=== PATIENT | male | born 1970 | race Two or more races ===

== ENCOUNTER 2024-09-17 00:18 | Emergency (ER) | payer MEDICAID, SELFPAY ==
[2024-09-17 01:04] VITALS: BP 185/106; PULSE 82; RESP 18; TEMP 36.8; O2SAT 97
[2024-09-17 01:05] VITALS: BMI 28.7
--- NOTE | 2024-09-17 01:22 | XR_ITS ---
Examination: CT brain head without contrast. 2-D sagittal coronal reconstructions Date and time of exam:September 17, 2024 at 0303 hours INDICATIONS: Onset headaches generalized body weakness today CTDI: vol (mGy):46.3 DLP: (mGycm):880 Technique: Multiple CT axial sections of the brain have been obtained, 5 mm slice thickness. Contrast has not been administered. 2-D sagittal, coronal reconstructions have been obtained Low dose protocols were performed. One or more of the following dose reduction techniques were used; automated exposure control, adjustment of the mA and/or KV according to patient size, use of iterative reconstruction technique. Findings: No significant ventricular enlargement. Intra-axial or extra-axial hemorrhage density is not seen. No mass effect or midline shift Basal cisterns are not remarkable. Fourth ventricle is midline. Cranial vault intact. Impression: Negative for acute hemorrhage, mass effect or midline shift
[2024-09-17] MEDS: DIAZEPAM 5 MG TABLET 10 MG PO (01:28)
[2024-09-17 03:48] VITALS: BP 153/95; PULSE 76; RESP 18; TEMP 36.7; O2SAT 95
--- NOTE | 2024-09-17 04:00 | PRELIM_ITS ---
CT scan of the head without intravenous contrast (axial sections with sagittal and coronal reformats) September 17, 2024 0303 hours Clinical history: COOK No prior study is available for comparison. Findings: There is no evidence of intracranial hemorrhage, mass effect or midline shift. There are periventricular white matter hypodensities, compatible with chronic small vessel ischemia. There is mild volume loss. There is atheromatous calcification of the intracranial arteries. The calvarium is unremarkable. The mastoid air cells and the visualized paranasal sinuses are clear. Impression: No evidence of intracranial hemorrhage, mass effect or midline shift. Periventricular chronic small vessel ischemia and volume loss. Report Electronically Signed By: Andrew Stoddard 09/17/2024 3:59:59 AM [EST]
[2024-09-17] MEDS: METOCLOPRAMIDE 5 MG TABLET 10 MG PO (04:39)
[2024-09-17] MEDS: KETOROLAC INJ 60 MG/2 ML VIAL IM (04:39)
[2024-09-17 05:35] VITALS: BP 155/85; PULSE 74; RESP 19; TEMP 36.4; O2SAT 98
--- NOTE | 2024-09-17 05:47 | EDNOTE_ITS ---
ED Headache RME/HPI General Chief Complaint: Headache Stated Complaint: HEADACHE, WEAKNESS, ANXIOUS Time Seen by Provider: 09/17/24 01:21 Arrival date/time: 09/17/24 00:18 53M with history of alcohol use presents to ED with several days of COOK and generalized weakness. Patient last drank 3 days ago. Limitations: no limitations Related Data Previous Rx's ?Medication ?Instructions ?Recorded folic acid 1 mg tablet 1 mg PO BID #30 tabs 3 thiamine mononitrate (vit B1) 100 100 mg PO BID #30 ta bs 08/08/22 mg tablet lorazepam 0.5 mg tablet (Ativan) 0.5 mg PO QDAY PRN an xiety #14 tabs 06/22/23 naltrexone 50 mg tablet 50 mg PO QDAY #30 tabs 06/21 Allergies Allergy/AdvReac Type Severity Reaction Status Date / Time No Known Allergies Allergy Verified 09/17/24 00:19 Review of Systems Review of Systems Systems Reviewed: All systems reviewed, normal except as documented Constitutional Constitutional: Reports system reviewed and no additional complaints, except as documented, Reports as per HPI, Reports anorexia, Denies fever(s), Reports headache(s) and Reports weakness ENT Ears, Nose, Mouth, and Throat: Denies disequilibrium and Reports headache(s) Cardiovascular Cardiovascular: Reports system reviewed and no additional complaints, except as documented, Denies chest pain and Denies dyspnea Respiratory Respiratory: Reports system reviewed and no additional complaints, except as documented, Denies cough and Denies dyspnea Gastrointestinal Gastrointestinal: Reports system reviewed and no additional complaints, except as documented, Denies abdominal pain, Denies nausea and Denies vomiting Neurologic Neurologic: Reports system reviewed and no additional complaints, except as documented, Denies confusion, Denies disequilibrium, Reports headache(s) and Reports weakness Psychiatric Psychiatric: Denies confusion Past Medical History Past Medical History CARDIAC: Positive Hypertension; Negative Cardiac Disorders or Congestive Heart Failure RESPIRATORY: Negative Chronic Obstructive Pulmonary Disease (COPD) GENITOURINARY: Negative Renal Disease ENDOCRINE: Negative Endocrine Disorders, Diabetes Mellitus Type 1 or Diabetes Mellitus Type 2 PSYCHO/SOCIAL: Positive Anxiety OTHER HISTORY: Negative Autoimmune Disease, Blood Transfusions, Blood Transfusion Reaction or Cancer Surgical History SURGICAL: Negative Cardiac Surgery Social History SMOKING STATUS: Never smoker SUBSTANCE USE: does not use ED Exam General Limitations: Present no limitations General appearance: Present alert and in no apparent distress Head Head exam: Present atraumatic Eye Eye exam: Present normal appearance, PERRL and EOMI ENT ENT exam: Present normal exam, normal oropharynx and mucous membranes moist Neck Neck exam: Present normal inspection, full ROM and trachea midline Chest Chest inspection: Present normal inspection and symmetric chest wall rise Respiratory Respiratory exam: Present normal lung sounds bilaterally Cardiovascular Cardiovascular exam: Present regular rate, normal rhythm and normal heart sounds Abdominal Exam Abdominal exam: Present soft and normal bowel sounds Extremities Exam Extremities exam: Present normal inspection and full ROM Back Exam Back exam: Present normal inspection and full ROM Neurological Exam Neurological exam: Present alert, oriented X3 and CN II-XII intact Psychiatric Psychiatric exam: Present normal affect and normal mood Skin Skin exam: Present warm, dry, intact and normal color Course Quality Measures none Orders Category Date Time Status CT head/brain wo con Stat Exams 09/17/24 01:22 Taken Diazepam [Valium] Med 09/17/24 01:22 Discontinued 10 mg PO X1 ONE Ketorolac Inj [Toradol Inj] Med 09/17/24 04:03 Discontinued 60 mg IM X1 ONE Metoclopramide [Reglan] Med 09/17/24 04:03 Discontinued 10 mg PO X1 ONE Vital Signs Vital signs: Vital Signs Temperature 98.2 F 09/17/24 01:04 Pulse Rate 82 09/17/24 01:04 Respiratory Rate 18 09/17/24 01:04 Blood Pressure 185/106 H 09/17/24 01:04 Pulse Oximetry (%) 97 09/17/24 01:04 Oxygen Delivery Method Room Air 09/17/24 01:04 O2 at 97% on RA and WNLs Headache MDM Narrative MDM Narrative:: 53M with history of alcohol use presents to ED with several days of COOK and generalized weakness. Patient last drank 3 days ago. Physical exam reveals normal pupil response and EOM. CN II-XII grossly intact. Patient is afebrile, calm, and alert. Speech normal. Gait normal. CT head unremarkable. Migraine meds improved symptoms. Valium did not improve symptoms. Patient data External records reviewed:: [facility] previous records Clinical information provided by:: patient Social determinants that could affect healthcare access:: alcohol use Patient has the following chronic illnesses:: alcohol use How is presenting disease/condition affected by chronic disease/condition?: exacerbated by Evaluation data The following diagnostics were reviewed and interpreted by me:: radiology exam(s) Lab and/or radiology exams considered but not ordered:: ordered Interpretation Summary: above Medications / Prescriptions Medications or Prescriptions considered but not ordered:: ordered Medication administrations:: Medication Administration History Discontinued Medications Diazepam (Diazepam 5 Mg Tablet) 10 mg PO X1 ONE Stop: 09/17/24 01:23 Last Admin: 09/17/24 01:28 Dose: 10 mg Documented By: FAYE Ketorolac Tromethamine (Ketorolac Inj 60 Mg/2 Ml Vial) 60 mg IM X1 ONE Stop: 09/17/24 04:04 Last Admin: 09/17/24 04:39 Dose: 60 mg Documented By: FAYE Metoclopramide HCl (Metoclopramide 5 Mg Tablet) 10 mg PO X1 ONE Stop: 09/17/24 04:04 Last Admin: 09/17/24 04:39 Dose: 10 mg Documented By: FAYE above Consultations Consultation(s) initiated? (list below): No Diagnosis Differential diagnosis headache: migraine, tension headache, subarachnoid hemorrhage, headache, meningitis, sinusitis and postconcussion syndrome Most likely diagnosis given after review of the tests above:: COOK Admission Indicated Admission indicated?: not indicated Admission Request Was there a request for admission?: No Disposition Plan Disposition Plan: Discharge Discharge Attestation Discharge Attestation: The patient and all family members were given an opportunity to ask questions and understood the discharge instructions. Discharge instructions specifically effects, indications for sooner follow up or return to the emergency department, and the expected course of current diagnosis. Patient condition: Stable Discharge Plan Plan Patient Disposition: HOME (Self Care) Discharge Disposition comment: Stable Prescriptions/Referrals Prescriptions/Med Rec: No Action folic acid 1 mg tablet 1 mg PO BID Qty: 30 1RF thiamine mononitrate (vit B1) 100 mg tablet 100 mg PO BID Qty: 30 1RF naltrexone 50 mg tablet 50 mg PO QDAY Qty: 30 0RF lorazepam [Ativan] 0.5 mg tablet 0.5 mg PO QDAY PRN (Reason: anxiety) Qty: 14 0RF Referrals: Derrick Genao MD [Primary Care Provider] - In 1 week Problem List Clinical Impression: Headache Patient/Caregiver Discharge Instructions Education Materials: Self-Care for Headaches Additional Instructions: Please follow-up with PCP within 24-48 hours and return immediately if symptoms worsen. Print Language: Hungarian Stand Alone Forms: Patient Portal Info Letter PA/PRACTICE PHYSICIAN Supervising Physician PA/PRACTICE PHYSICIAN Supervising Physician: Dr. Costa
== END 2024-09-17 06:04 | disposition home or self-care (01) ==
PROVIDERS: Emergency Provider Emergency Medicine; PCP Family Medicine
DX: R51.9 Headache, unspecified (principal); I67.82 Cerebral ischemia
CPT/HCPCS: 70450; 96372; 99284; J1885; A9270